=== PATIENT | male | born 1965 | race Caucasian/White ===

== ENCOUNTER → 2020-01-18 | Outpatient (CLI) | payer OTHER ==
--- NOTE | 2020-01-19 08:37 | Diagnostic Imaging Report ---
Right shoulder, 2 views. History: Right shoulder pain. Findings: The soft tissues are normal. Bone mineralization is normal. There is no evidence of fracture, AC separation, or dislocation. There are no lytic or sclerotic lesions. There is mild AC and glenohumeral joint space narrowing with minimal osteophytosis. 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 No acute osseous abnormality. Signed by: Daniele Chou on 01/19/2020 8:34 AM
== END ==
LOC: RAD 14:45
DX: M25.511 Pain in right shoulder (principal)

== ENCOUNTER → 2020-03-01 | Day surgery (SDC) | payer OTHER ==
--- NOTE | 2020-02-25 10:58 | Diagnostic Imaging Report ---
EXAMINATION: PA and lateral views of the chest. COMPARISON: None CLINICAL HISTORY: Preoperative study for orthopedic procedure DISCUSSION: The lungs are well inflated. No focal airspace consolidation, pleural effusion, or pneumothorax. Cardiomediastinal contour and pulmonary vasculature are within normal limits. No acute osseous abnormalities. IMPRESSION: No acute cardiopulmonary abnormalities. Signed by: Dr. Orlin Najera M.D. on 02/25/2020 10:55 AM
[~2020-03-01] MED LIST: ACETAMINOPHEN 1000 MG/100 ML IV ONE; CEFAZOLIN SOD 1 GM/NS 50ML 50 ML IV ONE; DEXAMETHASONE SOD PHOS INJ 4 MG/ML VIAL ONE; EPINEPHRINE 1 MG/ML 30ML VIAL ONE; EPINEPHRINE HCL 1:1000 1ML 1 MG/ML AMP ONE; LIDOCAINE HCL 2% LOCAL INJ 5 ML SDV VIAL INJ ONE; ONDANSETRON HCL INJ 2MG/ML 2ML 2 MG/ML VIAL ONE; PROPOFOL IV EMULSION 10 MG/ML 20 ML VIAL ONE; ROCURONIUM BROMIDE 10 MG/ML 5ML VIAL IV ONE; SEVOFLURANE INHAL SOLN 250 ML PEN BTL ONE; SUCCINYLCHOLINE CHLORIDE 20 MG/ML 10ML VIAL ONE
[2020-03-01 10:30] VITALS: BP 125/74
--- NOTE | 2020-03-01 12:03 | Operative Report ---
DATE OF PROCEDURE: 03/01/2020 SURGEON: Orlin Swenson MD PLASTER HELPER: Leland Weir, certified PA. PREOPERATIVE DIAGNOSIS: Right shoulder rotator cuff tear. POSTOPERATIVE DIAGNOSIS: Right shoulder rotator cuff tear. PROCEDURES: Right shoulder arthroscopy, subacromial decompression, biceps tenodesis, and rotator cuff repair. INDICATIONS: The patient is a 55-year-old gentleman, who has clinic signs and symptoms consistent with a full-thickness tear of his rotator cuff in his right shoulder. He has failed conservative management and would like to have this surgically repaired. The risks and benefits have been discussed. The lengthy recovery and the importance of physical therapy have been stressed. All of his questions have been answered. He states he understands and wishes to proceed. PROCEDURE IN DETAIL: The patient was brought to the operating room and placed under general anesthetic. He received prophylactic antibiotics and a regional block in the holding area. He was positioned on the shoulder table in the beach chair position. His right upper extremity was prepped and draped in a sterile manner. A preoperative time-out was performed. A posterior arthroscopy portal was established. The shoulder was insufflated with sterile saline and systematically inspected. The glenohumeral surfaces were generally well preserved. There was a fair bit of fraying of the anterior and superior labrum. The biceps tendon was extensively frayed. There was a large amount of synovitis in the joint. There was a full-thickness tear of the supraspinatus. A lateral working portal was established. A shaver was introduced into the joint. The articular surface of the rotator cuff tear was debrided back to more healthy tissue. Some of the synovitis was gently electrocauterized and debrided. The biceps tendon was released due to the extensive fraying. A later tenodesis was performed. The scope was then placed into the subacromial space. Extensive subacromial bursitis was encountered. This was debrided back using the electrocauterizing shaver. A large subacromial spur was debrided back to a type 1 morphology of the undersurface of the acromion. The rotator cuff was carefully inspected and probed, this was about a 2 cm tear. The greater tuberosity was decorticated. An [employer] SpeedBridge Double-Row construct rotator cuff repair system was used. Pig Furnace Operator holes were placed into the articular margin at the anterior and posterior borders of the tear. A bioabsorbable suture anchors preloaded with FiberTape and auxiliary stitches were seated. The anterior auxiliary stitch was wrapped around and passed through the biceps tendon. This was secured arthroscopically for a tenodesis. The FiberTape stitches were passed through the rotator cuff with an [employer] suture passer. These were then and repaired with secondary bioabsorbable suture anchors. One FiberTape stitch from the anterior anchor was connected with one FiberTape stitch from the posterior anchor to securely repair the rotator cuff footprint. The repair was probed and noted to be under appropriate tension with good opposition of the tendon down to the cancellous bone. The arthroscopic instruments were then all removed. The portal incisions were closed with nylon stitches. A sterile bandage and an UltraSling were applied. The patient was extubated and transported to the recovery room in stable condition. Blood loss was less than 10 mL. All needle and sponge counts were correct. Orlin Swenson MD DR/JOSE /[id number]
== END | disposition home or self-care (01) ==
LOC: OR 06:15
PROVIDERS: ATTEND Specialist
DX: S46.021A Laceration of muscle(s) and tendon(s) of the rotator cuff of right shoulder, initial encounter (principal); M65.811 Other synovitis and tenosynovitis, right shoulder; M77.9 Enthesopathy, unspecified; F17.210 Nicotine dependence, cigarettes, uncomplicated; X58.XXXA Exposure to other specified factors, initial encounter; Z01.810 Encounter for preprocedural cardiovascular examination; Z01.812 Encounter for preprocedural laboratory examination; Z01.818 Encounter for other preprocedural examination; Z11.59 Encounter for screening for other viral diseases; Z68.35 Body mass index [BMI] 35.0-35.9, adult
CPT/HCPCS: 29827; 29828; 71046; 93005; C1713; J0131; J0171; J0330; J0690; J1100; J2001; J2405; J2704; U0002

== ENCOUNTER 2020-05-09 13:00 | Outpatient (RCR) | payer OTHER | END 2020-05-11 | LOC: PT 13:00 | PROVIDERS: ATTEND Specialist | DX: Z47.89 Encounter for other orthopedic aftercare (principal); S46.021D Laceration of muscle(s) and tendon(s) of the rotator cuff of right shoulder, subsequent encounter ==

== ENCOUNTER 2020-05-24 16:00 | Outpatient (RCR) | payer OTHER | END 2020-06-11 | LOC: PT 16:00 | PROVIDERS: ATTEND Specialist | DX: Z47.89 Encounter for other orthopedic aftercare (principal); S46.021D Laceration of muscle(s) and tendon(s) of the rotator cuff of right shoulder, subsequent encounter; M62.81 Muscle weakness (generalized); M25.511 Pain in right shoulder; M25.611 Stiffness of right shoulder, not elsewhere classified | CPT/HCPCS: 97139 ==

== ENCOUNTER 2021-11-03 15:00 | Outpatient (RCR) | payer OTHER | END 2021-11-09 | LOC: PT 15:00 | PROVIDERS: ATTEND Neurological Surgery | DX: M48.061 Spinal stenosis, lumbar region without neurogenic claudication (principal) ==

== ENCOUNTER 2023-11-11 15:35 | Outpatient (RCR) | payer OTHER | END 2023-12-10 | LOC: PT 15:35 | PROVIDERS: ATTEND Neurological Surgery | DX: M54.50 Low back pain, unspecified (principal); M62.81 Muscle weakness (generalized); M48.061 Spinal stenosis, lumbar region without neurogenic claudication; M53.86 Other specified dorsopathies, lumbar region ==